=== PATIENT | male | born 1960 | race Caucasian/White ===

== ENCOUNTER 2017-03-27 13:30 | Emergency (ER) | payer SELFPAY ==
[~2017-03-27] VITALS: Ht 170.2 cm; Wt 65.8 kg
[~2017-03-27 13:30] MED LIST: CITA10TA9 PO
[2017-03-27] MEDS ORDERED: IV NORMAL SALINE 1000 ML BAG IV ONE (14:00)
[2017-03-27] MEDS ORDERED: METOCLOPRAMIDE HCL 10 MG/2 ML VIAL IV ONE (14:00)
[2017-03-27] MEDS ORDERED: KETOROLAC TROMETHAMINE 15 MG INJ IV ONE (14:00)
[2017-03-27 14:02] LABS: BASOPHILS # (AUTO) 0.2 K/uL (0.0-8.0); BASOPHILS % (AUTO) 1.2 % (0.0-2.0); EOSINOPHILS # (AUTO) 0.1 K/uL (0.0-0.7); EOSINOPHILS % (AUTO) 0.6 % (0.0-7.0); HEMATOCRIT 49.2 % (40-50); HEMOGLOBIN 16.4 G/DL (14.0-18.0); LYMPHOCYTES # (AUTO) 0.4 K/UL (0.8-4.8); LYMPHOCYTES % (AUTO) 2.6 % (20.5-51.5); MEAN CORPUSCULAR HEMOGLOBIN 28.8 UUG (27.0-31.0); MEAN CORPUSCULAR HGB CONC 33 g/dL (32.0-37.0); MONOCYTES # (AUTO) 0.4 K/UL (0.1-1.30); MONOCYTES % (AUTO) 3.2 % (0.0-11.0); NEUTROPHILS # (AUTO) 12.5 K/UL (1.8-8.9); NEUTROPHILS % (AUTO) 92.4 % (38.5-71.5); PLATELET COUNT (AUTO) 207 K/UL (150-450); RED BLOOD CELL COUNT(AUTO) 5.71 MIL/UL (4.7-6.1); WHITE BLOOD COUNT (AUTO) 13.6 K/UL (4.0-11.2)
[2017-03-27] MEDS ORDERED: KETOROLAC TROMETHAMINE 15 MG INJ ONE (14:07)
[2017-03-27] MEDS ORDERED: METOCLOPRAMIDE HCL 10 MG/2 ML VIAL ONE (14:09)
[2017-03-27 14:13] LABS: CREATININE 1.5 mg/dL (0.6-1.3); POTASSIUM 4.1 mmol/L (3.5-5.1)
[2017-03-27 14:18] LABS: BILIRUBIN,DIRECT 0.2 mg/dL (0.0-0.2); BILIRUBIN,TOTAL 0.7 mg/dL (0.2-1.0); TOTAL PROTEIN, SERUM 8.7 g/dL (6.4-8.2)
[2017-03-27 15:10] LABS: BAND % (MANUAL) 30 % (0-10); LYMPHOCYTES % (MANUAL) 5 % (20-40); MONOCYTES % (MANUAL) 4 % (2-10); NEUTROPHILS % (MANUAL) 61 % (42-75)
--- NOTE | 2017-03-27 15:20 | NUR ---
PT AMBULATED TO BATHROOM WITH STEADY GAIT, SAYS FEELS BETTER AND READY TO GO HOME
[2017-03-27 15:40] VITALS: BP 122/81
--- NOTE | 2017-03-27 15:40 | NUR ---
Patient discharged to home in stable conditon. Written and verbal after care instructions given. Patient verbalizes understanding of instructions.PT DENIES ANY PAIN OR NAUSEA AT THIS POINT
== END 2017-03-27 15:43 | disposition home or self-care (01) ==
LOC: ER 13:30
DX: E86.0 Dehydration (principal); R11.2 Nausea with vomiting, unspecified; E78.00 Pure hypercholesterolemia, unspecified
CPT/HCPCS: 36415; 80048; 80076; 83690; 84484; 85025; 85730; 93005; 96361; 96374; 96375; 99285; A4663; J1885; J2765; J7030; 70030-TC

== ENCOUNTER 2017-07-23 12:08 | Emergency (ER) | payer MEDICAID ==
[~2017-07-23] VITALS: Ht 170.2 cm; Wt 68.0 kg
--- NOTE | 2017-07-23 12:48 | NUR ---
Patient discharged to home in stable conditon. Written and verbal after care instructions given. Patient verbalizes understanding of instructions.
== END 2017-07-23 12:51 | disposition home or self-care (01) ==
LOC: ER 12:08
DX: E78.00 Pure hypercholesterolemia, unspecified (principal); Z76.0 Encounter for issue of repeat prescription; Z79.899 Other long term (current) drug therapy
CPT/HCPCS: A4663

== ENCOUNTER 2017-09-02 20:50 | Emergency (ER) | payer MEDICAID, OTHER ==
[~2017-09-02] VITALS: Ht 172.7 cm; Wt 68.0 kg
--- NOTE | 2017-09-02 21:00 | NUR ---
DR KIT OSUNA MD AT BEDSIDE FOR MSE.
--- NOTE | 2017-09-02 21:06 | NUR ---
PT C/O RT KNEE PAIN X5 HRS [employer]. NO ACUTE INJURY NOTED.
--- NOTE | 2017-09-02 21:14 | NUR ---
XRAY AT PT BEDSIDE.
--- NOTE | 2017-09-02 21:22 | NUR ---
XRAY AT PT BEDSIDE.
[2017-09-02] MEDS ORDERED: IBUPROFEN 600 MG TABLET ONE (21:44)
[2017-09-02] MEDS ORDERED: IBUPROFEN 600 MG TABLET PO ONE (21:45)
--- NOTE | 2017-09-02 21:59 | NUR ---
Patient discharged to home in stable conditon. Written and verbal after care instructions given. Patient verbalizes understanding of instructions. PT ambulated from ER w/ steady gait. No distress noted.
[2017-09-02 22:01] VITALS: BP 136/92
== END 2017-09-02 22:01 | disposition home or self-care (01) ==
LOC: ER 20:51
DX: S83.91XA Sprain of unspecified site of right knee, initial encounter (principal); E78.00 Pure hypercholesterolemia, unspecified; Z79.899 Other long term (current) drug therapy; X58.XXXA Exposure to other specified factors, initial encounter; Y93.89 Activity, other specified; Y92.89 Other specified places as the place of occurrence of the external cause; Y99.8 Other external cause status
CPT/HCPCS: A4663

== ENCOUNTER 2017-11-06 17:02 | Emergency (ER) | payer OTHER ==
[~2017-11-06] VITALS: Ht 170.2 cm; Wt 65.8 kg
[2017-11-06] MEDS ORDERED: [UNRECOGNIZED DRUG - REMARK] (17:13)
[2017-11-06] MEDS ORDERED: CLON1TAB23 PO (17:13)
--- NOTE | 2017-11-06 17:23 | NUR ---
Patient discharged to home in stable conditon. Written and verbal after care instructions given. Patient verbalizes understanding of instructions.
== END 2017-11-06 17:25 | disposition home or self-care (01) ==
LOC: ER 17:05
DX: L08.89 Other specified local infections of the skin and subcutaneous tissue (principal); E78.00 Pure hypercholesterolemia, unspecified; Z79.899 Other long term (current) drug therapy
CPT/HCPCS: 99283; A4663

== ENCOUNTER 2018-05-21 17:05 | Emergency (ER) | payer OTHER ==
[~2018-05-21] VITALS: Ht 170.2 cm; Wt 67.6 kg
[~2018-05-21 17:05] MED LIST changes: +CLON1TAB23 PO; +[UNRECOGNIZED DRUG - REMARK]
--- NOTE | 2018-05-21 17:21 | NUR ---
Patient discharged to home in stable conditon. Written and verbal after care instructions given. Patient verbalizes understanding of instructions.
== END 2018-05-21 17:23 | disposition home or self-care (01) ==
LOC: ER 17:07
DX: F32.9 Major depressive disorder, single episode, unspecified (principal); Z76.0 Encounter for issue of repeat prescription; E78.00 Pure hypercholesterolemia, unspecified; Z79.899 Other long term (current) drug therapy
CPT/HCPCS: A4663